=== PATIENT | male | born 1985 | race Two or more races ===

== ENCOUNTER 2019-09-24 16:06 | Emergency (ER) | payer MEDICAID ==
[~2019-09-24] VITALS: Ht 167.6 cm; Wt 75.7 kg
[2019-09-24] MEDS ORDERED: LIDOCAINE 1%-EPI 1:100,000 20 ML VIAL ONE (16:32)
--- NOTE | 2019-09-24 16:36 | NUR ---
bibself c/o Laceration to L wrist s/p cut on pipe at work. On room air, breathing evenly and unlabored. kept comfortable, will continue to monitor accordingly.
[2019-09-24] MEDS ORDERED: LIDOCAINE 1%-EPI 1:100,000 20 ML VIAL TP ONE (17:00)
[2019-09-24] MEDS ORDERED: TDAP [DIPH/PERTUSSIS/TET] 0.5 ML VIAL IM ONE ×2 (17:00→17:21)
[2019-09-24 18:00] VITALS: BP 134/82
--- NOTE | 2019-09-24 18:00 | NUR ---
PT. VERBALIZED UNDERSTANDING OF AFTERCARE INSTRUCTIONS.Patient discharged to home in stable condition. Written and verbal after care instructions given. Patient verbalizes understanding of instruction.
== END 2019-09-24 18:00 | disposition home or self-care (01) ==
LOC: ER 16:11
DX: S61.512A Laceration without foreign body of left wrist, initial encounter (principal); W26.8XXA Contact with other sharp object(s), not elsewhere classified, initial encounter; Y93.89 Activity, other specified; Y92.89 Other specified places as the place of occurrence of the external cause; Y99.0 Civilian activity done for income or pay
CPT/HCPCS: 12002; 90471; 90715; 99283; A6403; J3490

== ENCOUNTER 2019-09-26 19:04 | Emergency (ER) | payer MEDICAID ==
[~2019-09-26] VITALS: Ht 165.1 cm; Wt 83.9 kg
[2019-09-26 19:17] VITALS: BP 148/85
--- NOTE | 2019-09-26 19:21 | NUR ---
ELADIO HAWKINS AT BEDSIDE FOR SUTURE
--- NOTE | 2019-09-26 19:37 | NUR ---
TECH AT BEDSIDE FOR THUMB SPICCA APPLICATION.
--- NOTE | 2019-09-26 19:39 | NUR ---
Patient discharged to home in stable condition. Written and verbal after care instructions given. Patient verbalizes understanding of instruction.
== END 2019-09-26 20:06 | disposition home or self-care (01) ==
LOC: ER 19:04
DX: S61.512D Laceration without foreign body of left wrist, subsequent encounter (principal); M79.645 Pain in left finger(s); X58.XXXD Exposure to other specified factors, subsequent encounter

== ENCOUNTER 2020-01-26 11:47 | Emergency (ER) | payer MEDICAID ==
[~2020-01-26] VITALS: Ht 172.7 cm; Wt 83.9 kg
[2020-01-26 12:00] VITALS: BP 115/70
[2020-01-26] MEDS ORDERED: AZITHROMYCIN 250 MG TABLET PO ONE (13:30)
[2020-01-26] MEDS ORDERED: predniSONE 50 MG TABLET PO ONE (13:30)
== END 2020-01-26 13:17 | disposition home or self-care (01) ==
LOC: ER 11:48
DX: U07.1 COVID-19 (principal); R05 Cough; R09.81 Nasal congestion; R06.02 Shortness of breath
CPT/HCPCS: 71045-TC